=== PATIENT | male | born 1945 | race Caucasian/White ===

== ENCOUNTER 2017-06-03 23:12 | Inpatient (IN) ==
[2017-06-03 23:51] LABS: MANUAL DIFF NEEDED? NO
[2017-06-03 23:55] LABS: BASO% 0.4 % (0.0-0.8); EOS# 0.21 X1000 (0.0-0.7); EOS% 2.9 % (0.0-10.0); HEMATOCRIT 40.7 % (42.0-52.0); HEMOGLOBIN 13.8 g/dL (14.0-18.0); LYMPH# 2.65 X1000 (1.2-3.4); LYMPH% 36.3 % (20.5-51.1); MCHC 33.9 g/dL (33-37); MCV 91.5 FL (81-99); MONO# 0.51 X1000 (0.11-0.59); MPV 11.2 FL (7.4-10.4); NEUT% 53.4 % (42.2-75.2); PLT 173 X1000 (130-400); RBC 4.45 XMIL (4.7-6.1)
[2017-06-04 00:08] LABS: INR 0.99; PROTIME 10.4 Seconds (9.2-11.7); PTT 24.9 Seconds (22.0-36.0)
[2017-06-04 00:16] LABS: AGAP 15; ALBUMIN 3.9 g/dL (3.5-5.0); ALKALINE PHOSPHATASE 81 U/L (32-122); BUN 22 mg/dL (8-22); CALCIUM 9.2 mg/dL (8.8-10.2); CHLORIDE 105 mmol/L (98-107); COSMO 287; GOT 21 U/L (10-34); GPT 21 U/L (10-44); MAGNESIUM 1.9 mg/dL (1.5-2.7); POTASSIUM 4.1 mmol/L (3.5-5.1); SODIUM 142 mmol/L (136-145); TCO2 22 mmol/L (25-35); TOTAL BILIRUBIN 0.21 mg/dL (0.20-1.00); TOTAL PROTEIN 6.4 g/dL (6.3-8.3)
[2017-06-04 00:19] LABS: CK PROFILE 211 U/L (24-204)
[2017-06-04 00:38] LABS: CK INDEX 1.9 (0.0-2.5); CK-MB 4.04 ng/mL (0.0-5.0)
[2017-06-04] MEDS ORDERED: ASPIRIN PO ONE (02:36)
[2017-06-04] MEDS ORDERED: TYLENOL PO PRN (03:00)
[2017-06-04] MEDS ORDERED: ZOFRAN IV PRN (03:00)
[2017-06-04] MEDS ORDERED: AMBIEN PO PRN (03:00)
[2017-06-04] MEDS ORDERED: HEPARIN IV ONE (03:43)
[2017-06-04] MEDS: HEPARIN 25,000 UNITS/D5W 25,000 UNIT/250 ML IV.SOLN IV SCH ×2 (03:50→22:53)
--- NOTE | 2017-06-04 04:03 | HISTORY AND PHYSICAL ---
CHIEF COMPLAINT: Chest pain. PRIMARY CARE PHYSICIAN: [facility]. HISTORY OF PRESENTING ILLNESS: A 72-year-old male with a history of COPD, who presents to the emergency department with a 1-day history of having intermittent chest pain. He describes it as sharp pains, and states that it was not improving. Subsequently, patient came to the emergency department. In the ER, he was evaluated, and it was noted that he had elevated troponins. Due to his presenting symptoms, it was thought that he would need hospitalization for further management. At the time of my examination, he denied any headache, fever, chills, nausea, vomiting, diarrhea, hemoptysis, or weight changes, but complained of chest discomfort and shortness of breath. PAST MEDICAL HISTORY: COPD. PAST SURGICAL HISTORY: Rotator cuff surgery. ALLERGIES: No known drug allergies. CURRENT MEDICATIONS: As per medication reconciliation sheet. SOCIAL HISTORY: He is a former smoker. No history of alcohol or illicit drug use. FAMILY HISTORY: No history of coronary artery disease. REVIEW OF SYSTEMS: Twelve point review of systems as in HPI. Other systems negative. PHYSICAL EXAMINATION: GENERAL: Cooperative, friendly male. He is resting more comfortably now. VITAL SIGNS: Temperature 100.5 degrees, pulse 115, respiration 18, blood pressure 186/127. HEENT: Atraumatic, normocephalic. Extraocular movements intact. PERRLA. NECK: Supple. CHEST: Clear to auscultation. CARDIOVASCULAR: Regular rate and rhythm. ABDOMEN: Soft. Positive bowel sounds. EXTREMITIES: No edema. NEUROLOGIC: He is awake, alert, oriented x3. GENITOURINARY: No bladder distention. SKIN: Warm. LABORATORIES AND STUDIES: Sodium 142, potassium 4.1, chloride 105, CO2 22, BUN is 22, creatinine is 1.0, glucose 117. Troponin 0.142. WBC 7.31, hemoglobin 13.8, hematocrit 40.7, platelets 173,000. ASSESSMENT: A 72-year-old male with a history of COPD, presents to the emergency department with a 1-day history of having worsening chest pain. He is noted to have elevated troponins, and symptoms are consistent with acute coronary syndrome. Subsequently, he will need hospitalization for further management. 1. Acute coronary syndrome. 2. Chronic obstructive pulmonary disease. PLAN: 1. We will admit patient to ICU. 2. Start patient on a heparin protocol. 3. We will consult Cardiology. 4. Have patient on aspirin and statin. 5. We will hold his beta kayleigh, due to his heart rate initially was low. 6. Patient also on deep venous thrombosis prophylaxis, sequential compression devices. 7. We will continue to follow and reassess. cc: Suresh Arce MD
--- NOTE | 2017-06-04 05:42 | Diag Imaging Result Doc PS360 ---
EXAM: CHEST-2 VIEWS HISTORY: CP TECHNIQUE: Upright sitting AP COMPARISON: 11/29/2015 FINDINGS: The lungs are well expanded. The heart is not enlarged. The vessels are not distended. There are no infiltrates. No pleural effusions. IMPRESSION: No acute abnormality. Electronically signed by Jeffrey Hong 06/04/2017 5:40 AM
--- NOTE | 2017-06-04 07:37 | EKG Report ---
Test Performed on : 06/04/2017 07:32:54 AM Test Reason : ACS Blood Pressure : / mmHG Vent. Rate : 050 BPM Atrial Rate : 050 BPM P-R Int : 160 ms QRS Dur : 104 ms QT Int : 484 ms P-R-T Axes : 059 004 031 degrees QTc Int : 441 ms Sinus bradycardia. with occasional premature ventricular complexes. Nonspecific T wave abnormality in V3 Abnormal ECG No previous ECGs available Nonspecific T wave abnormality inferior leads III Confirmed by Brendan Holden DO ([id number]) on 06/06/2017 12:49:31 PM
--- NOTE | 2017-06-04 07:54 | EKG Report ---
Test Performed on : 06/03/2017 11:29:56 PM Test Reason : CP Blood Pressure : / mmHG Vent. Rate : 064 BPM Atrial Rate : 064 BPM P-R Int : 108 ms QRS Dur : 106 ms QT Int : 438 ms P-R-T Axes : 030 001 063 degrees QTc Int : 451 ms Sinus rhythm. with short SD with premature atrial complexes. with aberrant conduction. Nonspecific T wave abnormality Abnormal ECG When compared with ECG of 29-NOV-2015 14:09, aberrant conduction. is now present SD interval has decreased Nonspecific T wave abnormality has replaced inverted T waves in Inferior leads Nonspecific T wave abnormality, worse in Lateral leads Unconfirmed Result
[2017-06-04] MEDS: ASPIRIN PO SCH (08:57)
[2017-06-04] MEDS: LOPRESSOR PO SCH ×3 (09:11→19:11)
[2017-06-04] MEDS: NORVASC PO SCH ×2 (09:19→20:05)
--- NOTE | 2017-06-04 09:32 | CONSULTATION ---
DATE OF CONSULTATION: 06/04/2017 REQUESTING PHYSICIAN: Hospitalist Service REASON FOR CONSULTATION: Chest pain. HISTORY OF PRESENT ILLNESS: Mr. Fang is a 72-year-old male who is normally followed by [facility], Dr. Berkowitz, in [place]. 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 He says that all of a sudden he felt some funny numbness in the left leg and foot. He stood up and within 30 seconds, he was hit by a severe substernal chest pain, 10/10 in intensity. He felt dizzy, near syncopal, broke out in a sweat. This lasted for about 15 minutes and eventually subsided to some extent. He resumed his activities, and that evening when he got home, he noted that he was still having some minor discomfort, about 1 or 2/10 in intensity. Through the night he did not sleep well, went back to work on , 06/03/2017, and at work as he was pushing himself to do physical things, he felt the pain again and eventually last night at 9:30 p.m., he notified his daughter and his that he was having pains. He was brought to the emergency room. They did a number of studies including a D-dimer that is minimally elevated. They did troponin levels, first was 0.142, next was 0.138. CPK first was 211, next was 200. They did EKGs, the first one at the time of presentation which is 11:29 p.m. shows sinus rhythm with a nonspecific T wave in precordial leads V3 and V4. There is early transition. There are PVCs and PACs. Subsequent EKG done this morning at 7:32 shows sinus rhythm, again the T wave abnormality in V3 and V4 with PVCs. He has again a pattern of early transition. PAST MEDICAL HISTORY: Basically quite unremarkable. He has been diagnosed with COPD. He does not have any history of coronary heart disease or hypertension. He is bothered by prostate enlargement for which he takes medicine. PAST SURGICAL HISTORY: He has had a right rotator cuff surgery in the past. No other major problems. HOME MEDICATIONS: He uses terazosin 2 mg at bedtime for his prostate, vitamin B12, vitamin D3 and albuterol inhaler as well as Symbicort. ALLERGIES: No reported allergies. SOCIAL HISTORY: to his for 48 years. He has 3 grownup children. Quit smoking at the age of 34. Not a drinker. He has been generally quite healthy. The patient served 2 years in the [employer]. 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 REVIEW OF SYSTEMS: Multiple systems were checked. He has stable chronic lung disease. He has never experienced any heart pains. No DVT. No critical illness in the past. No accidents. No blood transfusions. No contagious illnesses. No recent travels. Multiple systems were really unremarkable. PHYSICAL EXAMINATION: Today his blood pressure is 165/85, temperature 97.5, pulse 41, respirations 15. He is awake, alert and oriented, in no distress. HEENT is unremarkable. He is very hard of hearing. He hears better with the right ear. No jugular venous distention. No cervical bruit. Chest shows diffusely diminished breath sounds. I do not hear any rales. Heart sounds are regular and rhythmic. Occasional extrasystole. No gallop is noted. Abdomen is soft, nontender. No mass or hepatomegaly. Extremities show good pulses, no peripheral edema. Neurologic: Follows commands. Moves all 4 extremities. DIAGNOSTIC DATA: Blood work shows sodium 142, potassium 4.1, BUN is 22, creatinine 1.0. Albumin is normal. Liver function tests are normal. PT and PTT are normal. Hemoglobin is 13.8, MCV is 91.5, white cell count is 7310. IMPRESSION: 1. The patient is presenting with sudden onset of chest pain with positive troponin and abnormal EKG. This is consistent with acute coronary syndrome. 2. Longstanding history of chronic obstructive pulmonary disease. 3. Prostate enlargement. 4. Hearing loss. RECOMMENDATIONS: At this point in time, I would suggest to give him more heparin. We will keep him on aspirin, low dose beta kayleigh and statins. We may add low dose amlodipine to optimize his systemic blood pressure. I will get a STAT echocardiogram. We will continue to trend cardiac enzymes. I will do a resting gated myocardial perfusion study, and I would like to do a CT scan of the chest without contrast. The patient more than likely will require invasive cardiac evaluation to define coronary anatomy. The daughter and request a transfer to [facility] for invasive workup. We will notify [place] once we are finished with the noninvasive part of the evaluation. cc: Phi Garcia MD
[2017-06-04 10:31] LABS: TRIGLYCERIDES 99 mg/dL (39-160); VLDL 20 mg/dL
--- NOTE | 2017-06-04 10:54 | PROGRESS NOTE ---
DATE: 06/04/2017 SUBJECTIVE: Today Mr. Fang refers to be feeling a lot better. Still has a lingering dull retrosternal sternal chest pain, but not as much as when he presented. OBJECTIVE: Vital signs: Blood pressure is 165/85, pulse of 41, respiration is 15, temperature is 97.5 degrees. General: On general examination, Mr. Fang is a 72-year-old, male. He is in bed. He does not seem to be in any remarkable distress. HEENT: Mucosa is pink and moist. Anicteric. Acyanotic. Neck: Supple. Chest: Clear. Cardiovascular: Regular rate and rhythm. There is no murmurs, no rubs, no gallops. Abdomen: Soft, distended, but nontender. Extremities: No pedal edema. INVESTMENT BANKING MANAGER: Patient is awake, alert, oriented x4. There is no focal neurological deficit. LABORATORY DATA: None for today. Yesterday the lab work seems unremarkable. Troponins were slightly elevated. Upon admission. IMAGING STUDIES: 1. A chest x-ray done on admission shows no acute abnormality. 2. EKG done twice shows sinus rhythm with occasional PACs and PVCs. There is some T-waves inversion in the in V3 and V4. 3. A repeat EKG done this morning continues to show remarkable sinus natalya with persistent T- waves inversion in V3 and V4 and there is some PVCs. ASSESSMENT: 1. Acute onset of a retrosternal chest pain with abnormal EKG and elevated troponin consistent with non STEMI. The patient has a history of previous smoke and blood pressure seems to be high. So, he definitely has risk factors for the disease. He has already been seen by cardiology. We are going to continue with the heparin drip. The patient has been started on beta kayleigh, however blood pressures are on the lower end in the 50s, so I will be extremely careful with the use of this. We will continue with aspirin and statin. I have switched him from simvastatin to atorvastatin, which will be a high-intensity. The patient has been ordered a CT scan for coronary arteries and also a myocardial perfusion scan. I think eventually the patient will be needing a left heart catheterization. 2. Hypertension. The patient has already been started today on low-dose some amlodipine. We will continue to monitor the blood pressure. As I said, he is bradycardic even when he came in. He has been started on metoprolol, so we will have to pay very close attention. 3. Obesity with BMI of 31 noted. 4. History of tobacco abuse in the past. cc: Kevon Ching MD MTDD
--- NOTE | 2017-06-04 11:10 | Diag Imaging Result Doc PS360 ---
EXAM: CT THORAX W/O CONTRAST INDICATION: COPD/pulmonary fibrosis TECHNIQUE: Dose reduction protocol was used. COMPARISON: None. FINDINGS: There are mild paraseptal emphysematous changes at the upper lobes bilaterally. There is mild subsegmental atelectasis and/or mild scarring at the lung bases. There is vague nodularity at the pleural surfaces posteriorly. There is a calcified granuloma in the right upper lobe. There are no pleural fluid collections and no pneumothorax. The heart is mildly prominent. There are coronary artery calcifications. There are a few shotty mediastinal lymph nodes with a few calcified indicating prior granulomatous disease. Limited views of the upper abdomen reveal a right renal cyst is actually smaller than an abdominal CT study in 2013. There is a parapelvic cyst versus chronic prominence of the left renal collecting system that is also seen in 2013. There is a stable low dense focus in the left hepatic lobe that probably represents a small cyst. IMPRESSION: 1.Mild emphysematous change as described. 2.Bibasilar mild fibrotic change and/or atelectasis. 3.Nonspecific mild pleural-based nodularity posteriorly. 4.Other incidental/nonacute findings detailed above. Electronically signed by Zachary Marin 06/04/2017 11:08 AM
[2017-06-04 11:43] LABS: HDL 63 mg/dL (35-55)
[2017-06-04 11:44] LABS: LDL 123 mg/dL
--- NOTE | 2017-06-04 13:21 | ECHO REPORT ---
ORDER DATE: 06/04/2017 INDICATION: Acute coronary syndrome. FINDINGS: 1. The right atrium is mildly enlarged at 4.9 cm. 2. Mild tricuspid regurgitation. RV systolic pressure of 46. 3. Normal RV systolic function with mild enlargement of the right ventricle. 4. Moderate pulmonic insufficiency. 5. Mild left atrial enlargement at 4.3 cm. 6. No mitral prolapse. Mild mitral regurgitation. 7. Dilated left ventricle with an end-diastolic dimension of 5.9 cm. Normal wall thicknesses with a posterior and interventricular septal wall thickness 1.1 cm each. Normal LV systolic function. Calculated EF of 62%. I do not see any obvious focal segmental abnormalities. Definity echo contrast was used to delineate the endocardial borders. 8. Aortic valve opens well. It is trileaflet. There is mild aortic insufficiency with no evidence of stenosis. 9. Aorta is likely upper limits of normal with a dimension of 3.9 cm at the root. 10. No pericardial effusion identified. cc: MD Phi Patel MD
[2017-06-04] MEDS: LIPITOR PO SCH (14:47)
--- NOTE | 2017-06-04 16:11 | Diag Imaging Result Document ---
PROCEDURE NAME: MYOCARDIAL PERFU SCAN, REST - 06/04/2017 INDICATION: Non ST elevation OK, COPD. PROCEDURES PERFORMED: Resting myocardial perfusion imaging. PROCEDURE IN DETAIL: Mr. Fang was brought to the nuclear laboratory and had a resting study with injection of 38.3 mCi of technetium-99m sestamibi with usual imaging protocol utilized. FINDINGS: 1. No evidence of abnormal extracardiac uptake. 2. Perfusion imaging demonstrates a small size, mild intensity defect involving a narrow portion of the inferior apical, mid inferior, and basal inferior mak. This defect is small in size and mild in intensity. It is more suggestive of soft tissue attenuation. 3. Normal ejection fraction of 58%. The end-diastolic volume is 182, end-systolic volume 76. Normal wall motion. cc: MD Phi Patel MD
[2017-06-04] MEDS ORDERED: ZOCOR PO SCH (21:00)
[2017-06-05] MEDS: LOPRESSOR PO SCH ×2 (01:03→07:24)
[2017-06-05 05:50] LABS: BASO% 0.5 % (0.0-0.8); LYMPH% 41.6 % (20.5-51.1); MANUAL DIFF NEEDED? NO; MONO% 7.3 % (1.7-9.3)
[2017-06-05 06:12] LABS: AGAP 12; BUN 17 mg/dL (8-22); CALCIUM 8.6 mg/dL (8.8-10.2); CHLORIDE 104 mmol/L (98-107); COSMO 277; POTASSIUM 3.9 mmol/L (3.5-5.1); SODIUM 138 mmol/L (136-145); TCO2 22 mmol/L (25-35)
[2017-06-05 07:05] LABS: EOS# 0.31 X1000 (0.0-0.7); EOS% 4.1 % (0.0-10.0); HEMATOCRIT 43.3 % (42.0-52.0); HEMOGLOBIN 14.4 g/dL (14.0-18.0); LYMPH# 3.15 X1000 (1.2-3.4); MCH 30.5 PG (27-31); MCHC 33.3 g/dL (33-37); MCV 91.7 FL (81-99); MONO# 0.55 X1000 (0.11-0.59); MPV 11.7 FL (7.4-10.4); NEUT% 46.5 % (42.2-75.2); PLT 156 X1000 (130-400); RBC 4.72 XMIL (4.7-6.1)
[2017-06-05] MEDS: ASPIRIN PO SCH (09:55)
[2017-06-05] MEDS: NORVASC PO SCH (09:55)
[2017-06-05] MEDS: LIPITOR PO SCH (09:55)
[2017-06-05] MEDS ORDERED: NITROGLYCERIN TOP SCH (10:00)
--- NOTE | 2017-06-05 10:20 | PROGRESS NOTE ---
DATE: 06/05/2017 SUBJECTIVE: Mr. Fang continues to complain of some very mild chest heaviness that has been persistent overnight. He reports it is in the 1-2/10 range. He had been relatively stationary, currently on bedrest. OBJECTIVE: Vital Signs: On physical examination, he is afebrile. Heart rates have been in the 40s to 50s. Blood pressure 149/67. General: Generally, no acute distress. Cardiovascular: He is in a regular rate and rhythm. He has no murmurs. He has no S3. He has no lower extremity edema. Chest: Exam is clear bilaterally. He has no increased work of breathing. Abdomen: Soft, nontender, nondistended. He has no obvious organomegaly. Skin Exam: Warm and dry throughout. PERTINENT DATA: White count 7.6, hematocrit 43, platelet count 156. Sodium 138, potassium 3.9, BUN 17, creatinine 0.9. His cardiac enzymes peaked at 0.142 when he showed up and they have trended down to 0.097 today. His HDL was 63, LDL was 123. ASSESSMENT: Non ST-elevation myocardial infarction. PLAN: Patient continues to have discomfort overnight. I have adjusted his medications, including reducing the dose of his metoprolol considering his heart rate has occasionally been in the 40s. We will add in some topical nitrates. He is on aspirin as well as atorvastatin and a heparin infusion. I have contacted [facility] and they have accepted the patient in transfer, and we will get him over sooner. I think considering his ongoing pain despite aggressive antianginals, we would be better served to have the patient in a percutaneous coronary intervention-capable facility. Regardless, the patient was requesting transfer for his heart catheterization on Wednesday. cc: Isaías Holden MD
[2017-06-05 12:29] VITALS: BP 116/71
--- NOTE | 2017-06-05 16:30 | DISCHARGE SUMMARY ---
ADMISSION DATE: 06/04/2017 DISCHARGE DATE: 06/05/2017 DISCHARGE DIAGNOSES: 1. Acute coronary artery syndrome, non ST elevation myocardial infarction. 2. History of chronic obstructive pulmonary disease. CONSULTS: Cardiology Department, Dr. Garcia and Dr. Holden. HOSPITAL COURSE: A 72-year-old male with a history of COPD, possible hypertension, and smoking history, who came to the emergency department and was admitted on 06/04/2017 secondary to chest pain, that has been intermittent, sharp, and apparently was not improving with medication. He came into the emergency department and we noted that he had elevated troponins. Due to his symptoms this patient was hospitalized and Cardiology Department was consulted. He was transferred to the ICU and echocardiogram and a stress test was done. We did not see anything remarkable but he was still complaining of chest pain, pressure like, but now pressure-like in the morning. His heart rate has been mostly in the 40s, and as per the patient and the daughter, he has been having this kind of heart rate constantly, this is not new for him. Patient was evaluated again today by Cardiology Department who decided to transfer this patient to [facility]. Probably this patient will get a cardiac catheterization to better evaluate his heart. DISCHARGE MEDICATIONS: This patient will be transferred to [facility], all his medications will be provided by his physician at [facility]. DISCHARGE PHYSICAL EXAMINATION: Vital signs: Temperature 97.2 degrees, pulse 47, respiratory rate 15, blood pressure 116/71, oxygen saturation 94% on room air. HEENT: Head normocephalic. No trauma. PERRLA. Neck: Supple. No JVD. No masses. Central trachea. Chest: Clear to auscultation. No wheezing. No rales. Cardiovascular: RRR. Bradycardic. Abdomen: Soft, nontender, nondistended. No hepatosplenomegaly. Extremities: No edema. No clubbing. No cyanosis. Neurological: The patient is alert and oriented x3. No focal neurological deficits. LABORATORY: WBC 7.5, hemoglobin 14.4, hematocrit 43.3, platelets 156,000. Sodium 138, potassium 3.8, chloride 104, bicarbonate 22, BUN 17, creatinine 0.9, glucose 402, calcium 8.6. Troponins done yesterday 0.097 and 0.117 and 0.138. DISPOSITION: This patient will be transferred to [facility] for possible cardiac catheterization today, Cardiology Department on board. cc: Juan Layton MD
[2017-06-05] MEDS ORDERED: LOPRESSOR PO SCH (21:00)
--- NOTE | 2017-06-10 13:32 | PROVIDER DOCUMENTATION ---
This chart was entered by Chantale Urbina Scribe, acting as scribe for Andrea Horner MD. HPI-Chest Pain - General Chief Complaint: Chest Pain Stated Complaint: CP Time Seen by Provider: 06/04/17 00:45 Source: patient Allergies/Adverse Reactions: Patient Allergies Allergy/AdvReac Type Severity Reaction Status Date / Time No Known Allergies Allergy Verified 11/29/15 17:02 Home Medications: Home Medication List Medication Instructions Recorded Confirmed Last Taken Type Terazosin HCl 2 mg PO QHS 06/18/13 06/04/17 11/29/15 History Albuterol Sulfate [Proair Hfa] 8.5 gm IH Q6H PRN PRN 06/04/17 06/04/17 Unknown History Cholecalciferol (Vitamin D3) 1,000 unit PO DAILY 06/04/17 06/04/17 Unknown History [Vitamin D3] Cyanocobalamin (Vitamin B-12) 1,000 mcg PO BID 06/04/17 06/04/17 Unknown History [Vitamin B-12] - History of Present Illness-CP Nature of Presenting Problem: 72 year old M presents to the ED with a cc of chest pain with an onset of yesterday. 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 PT states afterwards he went and sat in the barn and developed sharp stabbing chest pain and broke out into a cold sweat. PT states that his friends son is a nurse and came over and persuaded him to take 2 Aspirin but could not talk him into coming to the ED. PT is pain free at this time. Location: reports: substernal Chest Pain Radiation: reports: arms Quality of Pain: reports: sharp, stabbing Severity in ED: mild Onset/Duration: 24 hours ago Timing: resolved prior to arrival Associated Symptoms: reports: diaphoresis, shortness of breath Similar Symptoms Previously?: No Recently Seen Here or By Another Healthcare Provider: No Review of Systems - Adult - REVIEW OF SYSTEMS - ADULT Constitutional: denies: chills, fever Eyes: reports: no symptoms reported Ears, Nose, Mouth & Throat: reports: no symptoms reported Cardiovascular: reports: chest pain. denies: palpitations Respiratory: reports: shortness of breath. denies: cough Gastrointestinal: denies: diarrhea, vomiting Genitourinary: reports: no symptoms reported Musculoskeletal: reports: no symptoms reported Integumentary: reports: no symptoms reported Neurological: reports: no symptoms reported Psychiatric: reports: no symptoms reported Endocrine: reports: no symptoms reported Hematologic/Lymphatic: reports: no symptoms reported Allergic/Immunologic: reports: no symptoms reported All Other Systems: Reviewed and Negative Past History - Adult - PAST MEDICAL HISTORY-ADULT Review of Records: reports: Nursing Assessment Review, Medications Reviewed Major Childhood Illnesses: reports: denies history Respiratory: reports: COPD - PRIOR SURGERIES/PROCEDURES Surgical/Procedure History: reports: orthopedic (extremity), other (kidney stone ) - IMMUNIZATION STATUS Childhood Immunizations: See Nurse Assessment Flu Vaccine: See Nurse Assessment - SOCIAL HISTORY Smoking: non-smoker Substance Use: none/never Alcohol Use Frequency: occasionally Living Situation: family Physical Exam-General - PHYSICAL EXAM-ADULT Initial Vital Signs Reviewed: Yes - CONSTITUTIONAL General Appearance: appears well, alert, no apparent distress - RESPIRATORY Respiratory: chest non-tender, lungs clear, normal breath sounds - CARDIOVASCULAR Cardiovascular: normal peripheral pulses, regular rate, rhythm, no edema - GASTROINTESTINAL (ABDOMEN) Abdominal Exam: normal bowel sounds, non tender, soft - MUSCULOSKELETAL Extremity: normal inspection, no pedal edema - SKIN Integumentary: normal color, normal turgor, warm/dry - PSYCHIATRIC Psych/Mental Status: normal mood/affect, normal thought content, normal thought process, oriented x 3 Progress - PLAN OF CARE/RESULTS Progress/Plan/Lab Results: Orders Category Date Time Status Admit - [facility] Routine [id number] 06/04/17 03:00 Ordered Activity - Up with Assistance ORDERED Care 06/04/17 03:00 Active Apply Mechanical Device [QM] ORDERED Care 06/04/17 03:00 Active Cardiac Monitoring DIRECTED Care 06/03/17 23:43 Completed Daily Weights QDAY ASSESS Care 06/04/17 03:00 Active Intake and Output-Strict ORDERED Care 06/04/17 03:00 Active Notify MD if DIRECTED Care 06/04/17 03:00 Active Nursing- MD Consult Request ROUTINE Care 06/04/17 03:00 Completed Old records/chart to unit .From other facility Care 06/04/17 03:00 Completed Oxygen Therapy- ED Nursing DIRECTED Care 06/03/17 23:43 Completed Saline Loc NOW Care 06/03/17 23:43 Completed Vital Signs Order Q 4-HR ASSESS Care 06/04/17 03:00 Completed Z-Document. for Tele Applied ORDERED Care 06/04/17 03:00 Completed Physician/Provider Consults Routine Cons 06/04/17 03:00 Ordered Heart Healthy Diet Diet 06/04/17 01:34 Completed CHEST-2 VIEWS [RAD] Stat Exams 06/03/17 23:43 Completed CBC WITH ELECTRONIC DIFF [HEME] Stat Lab 06/03/17 23:35 Completed CK PROFILE [SP CHEM] Q8H Lab 06/04/17 03:00 Completed CK PROFILE [SP CHEM] Q8H Lab 06/04/17 11:26 Completed CK PROFILE [SP CHEM] Q8H Lab 06/04/17 19:12 Completed CK PROFILE [SP CHEM] Stat Lab 06/03/17 23:35 Completed COMPREHENSIVE METABOLIC PANEL [CHEM] Stat Lab 06/03/17 23:35 Completed D-DIMER [CHEM] Stat Lab 06/03/17 23:35 Completed MAGNESIUM [CHEM] Stat Lab 06/03/17 23:35 Completed PRO B-NATRIURETIC PEPTIDE Stat Lab 06/03/17 23:35 Completed PROTIME WITH INR [COAG] Stat Lab 06/03/17 23:35 Completed PTT [COAG] Stat Lab 06/03/17 23:35 Completed TROPONIN T Q8H Lab 06/04/17 03:00 Completed TROPONIN T Q8H Lab 06/04/17 11:26 Completed TROPONIN T Q8H Lab 06/04/17 19:12 Completed TROPONIN T Stat Lab 06/03/17 23:35 Completed Acetaminophen [Tylenol] Med 06/04/17 03:00 Discontinued 650 mg PO Q6H PRN PRN Aspirin Med 06/04/17 09:00 Discontinued 325 mg PO DAILY Heparin 25,000 Units/D5w Med 06/04/17 03:00 Discontinued 25,000 unit in 250 ml IV 12.48 mls/hr Ondansetron [Zofran] Med 06/04/17 03:00 Discontinued 4 mg IV Q4H PRN PRN SIMVAstatin [Zocor] Med 06/04/17 21:00 Discontinued 10 mg PO QHS Zolpidem [Ambien] Med 06/04/17 03:00 Discontinued 5 mg PO HS PRN PRN Oxygen Device Routine Oth 06/04/17 03:00 Completed Pulse Oximetry Routine Oth 06/04/17 03:00 Completed Telemetry [OM.EQ] Routine Oth 06/04/17 03:00 Active EKG [EKG] Stat Ther 06/03/17 23:26 Draft Transfer/Admit Order [TRANSFER] Routine Transfer 06/04/17 01:32 Completed Result Diagrams: 06/05/17 05:30 06/05/17 05:30 - EKG 1 Time of EKG reading by physician:: 23:29 EKG Read and Signed by:: Andrea Horner EKG Interpretation (*Must complete 3 of following elements*): Abnormal Rate: 64 Rhythm: sinus rhythm with short IA with PACs with aberrant conduction IA Interval: shortened ST Wave: non-specific ST changes - CONSULTS/PCP/HOSPITALIST Notification #1 *Consult/PCP/Hospitalist*: Dr. Arce(hospitalist) Time Discussed: 01:00 Reason/Comments: consult for admission Consult Disposition: Admit Departure - Departure Date of Disposition Decision: 06/03/17 Time of Disposition Decision: 23:50 DIAGNOSIS: Acute coronary insufficiency Disposition: ADMITTED INPATIENT 09 Certified Medical Emergency: Emergent Condition: Stable - Critical Care Note This patient required my direct & personal management of CC.: Yes Total Time (mins): 30 Critical Care Statement: This patient required my direct personal management to treat or rule out processes, the absence of which, could potentiallly result in sudden, clinically significant life or limb threatening deterioration. Attestation - Physician/ MIRNA Attestation Patient care was provided by Advanced Practice Provider:: No The physician spent face to face time with patient:: Yes Advanced Practice Provider documentation review:: Supervising physician onsite and consulted in the evaluation and care of this patient. The physician did have a face to face encounter with the patient. This chart was documented by the indicated scribe, (Chantale Urbina Scribe) and accurately reflects the services I performed and decisions made by me, Andrea Horner MD, as attested by the provider's signature.
== END 2017-06-05 15:45 | disposition short-term general hospital (02) ==
LOC: ED 23:12 → SUATTDRO 06-04 02:26 → ICU 06-04 02:26
PROVIDERS: ATTEND Internal Medicine